=== PATIENT | male | born 1960 | race Caucasian/White ===

== ENCOUNTER 2024-01-21 05:42 | Day surgery (SDC) | payer BC, OTHER, SELFPAY ==
--- NOTE | 2023-12-25 13:25 | EKG12_ITS ---
Test Reason : PRE-OP Blood Pressure : / mmHG Vent. Rate : 086 BPM Atrial Rate : 086 BPM P-R Int : 152 ms QRS Dur : 088 ms QT Int : 364 ms P-R-T Axes : 087 079 072 degrees QTc Int : 435 ms Normal sinus rhythm Normal ECG Confirmed by MINI SEE, JOE ([id number]), metropolitan editor NORMA LEWIS ([id number]) on 12/26/2023 10:40:08 AM Referred By: Inocente Sullivan Confirmed By:JOE MORSE MD
[2023-12-25 15:00] LABS: Absolute Neutrophil Count 4.4 X10^3/uL (2.0-7.7); Basophil# 0.09 X10^3/uL; Basophil% 1.4 % (0-1); Eosinophil# 0.15 X10^3/uL; Eosinophils% 2.3 % (0-5); Hematocrit 45.6 % (40-54); Hemoglobin 15.8 g/dL (13.0-16.5); Lymphocyte % 19.9 % (19-41); Mean Corp Hgb Conc 34.6 g/dL (32-36); Mean Corpuscular Hgb 31.7 pg (27.0-32.0); Mean Corpuscular Volume 91.4 fL (80-94); Mean Platelet Vol. 9.7 fl (6.2-12.0); Monocyte# 0.57 X10^3/uL; Monocyte% 8.7 % (0-10); NRBC Flagged by Analyzer 0 % (0-5); Neutrophil % 67.4 % (47-70); Platelet Count 242 K/mm3 (150-450); RBC Distribution Width CV 13.2 % (11.6-14.6); RBC Distribution Width SD 44.4 fl (35.1-43.9); Red Blood Count 4.99 M/mm3 (4.6-6.2); White Blood Count 6.5 K/mm3 (4.4-11.0)
[2023-12-25 15:47] LABS: Anion Gap 4 (5-15); BUN 10 mg/dL (7-18); BUN/Creat Ratio 11.9 RATIO (10-20); Calcium,Total 9.6 mg/dL (8.5-10.1); Chloride 105 mmol/L (98-107); Creatinine, Serum 0.84 mg/dL (0.70-1.30); EST Glomerular Filtration Rate 98 mL/min (>60); Est Glom Filt Rate - Afr Amer 119 mL/min (>60); Glucose 94 mg/dL (74-106); Potassium 3.5 mmol/L (3.5-5.1); Sodium Level 139 mmol/L (136-145)
[2023-12-25 16:37] LABS: HIV - WCH Non-Reactive (Nonreactive); Hepatitis B Surface Antibody Non-Reactive; Hepatitis C Antibody Non-Reactive (Nonreactive)
[2023-12-27 06:08] LABS: Hepatitis A AB, Total Negative (Negative)
[2024-01-21] VITALS (9 sets, daily range): BP systolic 99–118; BP diastolic 68–85; PULSE 73–117; RESP 11–21; TEMP 36.2–36.7; O2SAT 91–100; BMI 22.8
--- NOTE | 2024-01-21 06:30 | RAD_ITS ---
PROCEDURE: Intraoperative fluoroscopic services for C5-C6 and C6-C7 prosthetic disc placement. DATE OF EXAMINATION: January 21, 2024. INDICATION: Male, 63 years old. Chronic neck pain. FLUOROSCOPY TIME (if supplied): (32.6 seconds) minutes/seconds. 4.64 mGy. 9 images were submitted. RAD/Cerv Spine 2 or 3 Views IMPRESSION: Intraoperative imaging provided for disc placement at the C5-C6 and C6-C7 levels. Electronically Signed: Moisés Newman MD at 13:54 EDT ,
[2024-01-21] MEDS: Lactated Ringers 1,000 ML 15 ML IV (06:41)
[2024-01-21] MEDS: Acetaminophen 500 MG Tablet 1000 MG PO ×2 (06:42→13:12)
[2024-01-21] MEDS: dexAMETHasone 10 MG/ML Vial 8 MG IV (06:52)
[2024-01-21] MEDS: Magnesium 1 GM over 15 mins IV (06:53)
[2024-01-21 07:05] LABS: Bedside Glucose 102 mg/dL (74-106)
--- NOTE | 2024-01-21 07:26 | PCM.HP.BLA ---
History and Physical MR#: [id number] Acct: [id number] Name: RAHAT AMOS Jr. Rep #: [id number] : 1960 Provider: Dr. Inocente Sullivan MD Age/Sex: 63/M Location: [facility] [place] Status: Signed Intake Vital Signs 11/12/2413:54 Height 5 ft 9 in Weight: 164 lb BMI 24.2 Intake Visit Reasons: cervical spine Accompanied by: Allergies codeine Adverse Reaction (Verified 01/14/24 15:08) Otherprocaine [From Novocain] Adverse Reaction (Verified 01/14/24 15:08) Other Medications albuterol sulfate 90 mcg/actuation aerosol inhaler 2 puff inhalation Q6H PRN shortness of breath or wheezing 11/13/23 [History Confirmed 01/14/24] aspirin 81 mg tablet,delayed release 81 mg PO DAILY 11/13/23 [History Confirmed 01/14/24] lisinopril 10 mg tablet 10 mg PO DAILY 11/13/23 [History Confirmed 01/14/24] sildenafil 50 mg tablet 50 mg PO Q24H PRN sexual activity 11/13/23 [History Confirmed 01/14/24] PFSH Medical History Alcohol use Arthritis Chronic cough COPD (chronic obstructive pulmonary disease) Edentulous History of edema History of hiatal hernia History of irregular heartbeat History of stress test Hypertension Leg cramps Shortness of breath on exertion Smoker Wears glasses Surgical History H/O knee surgery History of colonoscopy History of tooth extraction History of umbilical hernia repair Family History Father Heart disease HypertensionMother Asthma Social History Smoking Status: Current every day smoker tobacco type: cigarettes alcohol intake: current alcohol intake frequency: holidays/special occasions only what type of physical activity do you participate in: walking HPI cervical spine Details: This documentation accurately reflects the service provided and the decisions made by me, Dr. Inocente Sullivan MD 01/14/24 1504. Part of today?s visit was documented by Joyce DOZIER, acting as scribe. RAHAT AMOS is a 63 year old M here today for preop, cervical spine, dos 01/21/24. Rahat continues to have neck and low back pain. His neck pain associated with left worse than right upper extremity numbness. He also has low back pain that radiates down to the lower extremities causing numbness and claudication. He has had trouble with balance which is worsening with time. The last 2 months he did go to vacation and although he had some balance issues, he did not report any new falls or injuries. Following his his previous history: 11/13/23: RAHAT AMOS is a 62 year old M here today for lumbar and cervical spine pain. Patient states this pain has bothered him for a while but has gotten worse over the last couple of weeks. Patient denies any specific injury that caused the pain. He states that if he is walking or on his feet too long he notices numbness into the right leg. He states he will get numbness and tingling into both legs but the right one is worse. Patient states he will get numbness and tingling down into his left arm. Patient has done patient care coordinator in which who referred him here. He denies any physical therapy or injections to the back. Patient states if he sits down or leans up against something he can relieve his pain. 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 He states he does a lot of walking at work. Patient takes Aleve for the pain in which he states does relieve the pain some. Rahat has had both neck and lower back pain for many years. The lower back pain radiates towards bilateral posterior hip. He has burning numbness over the anterior thigh and sometimes goes down to the toes worse on the right than the left. He has difficulty walking distances and finds himself leaning onto a shopping cart or sitting down after a while. He is able to walk about a block or 2 after which she has to find a place to sit down. He has had chiropractic treatment but no injections in the lower back. His neck pain has had episodic radiating numbness into the left worse than right upper extremity. He is right-hand dominant. He feels stumbling and early balance difficulties but denies any falls. He denies any dexterity issues but has numbness in the left worse than right hand occasionally. Ortho Exam General General: Yes no acute distress Neurologic: Yes alert and Yes oriented x3 Spine SPINE TESTING CERVICAL THORACIC LUMBAR Musculoskeletal Strength 0=absent - 5=normal Details: Examination of the neck and upper back showed no spinous process or paraspinal tenderness in the neck, mild right paraspinal tenderness in the lower lumbar region. Neurologic evaluation of upper and lower extremity shows 5 x 5 power in all muscle groups normal sensations in all dermatomes. Jaja's is negative. Romberg's is positive. Tandem gait shows mild imbalance. Bilateral knee reflexes are brisk. There is no clonus. Coding Level of Care Code Off vis,est,level 4 Diagnoses Spinal stenosis of lumbar region with neurogenic claudication M48.062 Cervical myelopathy G95.9 Time Spent (min) 35 Assessment and Plan Assessment and Plan (1) Spinal stenosis of lumbar region with neurogenic claudication: Status: Acute (2) Cervical myelopathy: Status: Acute Plan I again reviewed his x-rays and MRI of the cervical and lumbar spine done recently. These show C5-6 disc height loss, C5-6 moderate stenosis, C6-7 mild stenosis with cord indentation without any cord signal changes. No obvious instability on dynamic flexion-extension views. Lumbar spine shows transitional anatomy with possibly sacralized L5. Counting from the lowermost mobile segment is L5-S1, patient has L3-S1 disc degeneration disc height loss with severe central and foraminal stenosis along with congenital bony canal narrowing. No obvious instability on dynamic flexion-extension views in the lumbar spine as well. I again explained to him his imaging findings in detail. I went over both cervical and lumbar stenosis and the natural history. Cervical myelopathy arising from cord dysfunction from compressive lesions would affect his hand dexterity and numbness and also cause balance difficulties which may be progressive. Natural history of cervical myelopathy tends to have a stepladder pattern of progression with possibility of irreversible injury. Patient is already started to develop significant balance issues and stumbling. He denies use of any ambulatory aid. I recommend surgery in the form of anterior cervical decompression with possible disc replacement from C5-7. For his lumbar spine, I explained to him options of treatment which include continued nonoperative treat measures versus surgery. While patient does have significant neurogenic claudication, he may be able to explore further nonsurgical treatment while he recovers from the cervical spine surgery. With the severity of stenosis, possibility of progression and worsening claudication is likely. I explained to the patient that this may also need surgery at a future date. I explained to him that the extent of surgery would be best if the 2 surgeries are at least 3 months apart to allow for adequate healing. Due to cord function at stake, cervical surgeries are given prior to lower lumbar. Patient will undergo C5-7 disc replacement. All risk benefits and alternatives were discussed in detail. The risks include but are not limited to infection, bleeding, injury to nerves and vessels, dysphagia, dysphonia, hematoma, need for further surgery, need for fusion, hardware failure, persistent pain, nerve root injury, spinal cord injury, pneumonia, atelectasis, cardiopulmonary event, DVT, pulm embolism, stroke. Patient understands and agrees to proceed with surgery. Consent was signed. All restrictions after surgery were discussed in detail. All questions were answered.
[2024-01-21] MEDS: Cefazolin 2 GM in 0.9% Normal Saline (100mL Bag) 100 ML IV (07:45)
--- NOTE | 2024-01-21 09:46 | PCM.OPRPT ---
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 Anesthesia: Gen. endotracheal Estimated blood loss: 20 mL Complications: None Instrumentation used: [employer] Mobi-C cervical disc replacement implants Indications: The patient is a pleasant 63-year-old gentleman who presented with symptoms of neck pain, left worse than right upper extremity numbness, progressive dexterity and balance issues. MRI revealed C5-7 disc degeneration with central and left worse than right foraminal stenosis. In order to halt the progression of myelopathy, patient requested surgical intervention. All risks and benefits of the procedure were explained to the patient. The risks include but are not limited to infection, bleeding, injury to nerves and vessels, vertebral artery injury, spinal cord injury, paralysis, vocal cord paralysis, injury to esophagus, need for further procedures, adjacent segment degeneration, heterotopic ossification, implant loosening, implant failure, DVT, pulmonary embolism, cardiopulmonary event, etc. Procedure: The patient was identified in the preoperative suite using unique patient identifiers. Skin was marked consent was taken and all questions were answered. The patient was then brought back to the operative room and a timeout was performed. General endotracheal anesthesia was given. Intraoperative neuro monitoring leads were applied. The patient was carefully positioned supine on a regular OR table. A lateral x-ray with a C-arm was done to identify the level and to define the incision. The anterior neck was then prepped and draped in the usual fashion. A final timeout was then performed. A transverse skin incision was then taken to the left of midline 2 fingerbreadths above the clavicle. Subcutaneous tissue was then divided with Bovie. Platysma was identified and cut transversely with scissors. The fascial interval between the sternocleidomastoid and the larynx was developed. Omohyoid was identified and mobilized medially and inferiorly. Carotid sheath was laterally while the esophagus with the larynx was retracted medially to reach the prevertebral fascia. All prevertebral layers of fascia were bluntly dissected and a [place] pin was placed into one of the bodies. A lateral C-arm image was used to confirm the correct level. Once this was done longus coli muscle was elevated on both sides at and above and below C5-7 discs. Shadow line retractors were then placed with great care to protect the esophagus. A long handle knife was then used to perform annulotomy at C5-6. Disc fragments were removed with the pituitary. [place] pins were placed in C5 and C6 for disc distraction. AP view confirmed midline placement of [place] pins. Curettes were utilized to remove cartilage from the endplates. Discectomy was performed laterally up to the uncovertebral joints. Adequate decompression was performed, PLL was thinned out and partially resected. Foramina were decompressed without taking down the uncovertebral processes. Once the disc space was prepared, trials of various sizes were utilized. Thorough irrigation was given. Mobi-C anterior cervical disc replacement implant of size 15 x 15 mm with 5 mm height was then placed under fluoroscopic guidance. Adequate positioning was noticed on AP and lateral views. The retractors were then moved to the C6-7 disc space and the procedure of complete discectomy and decompression was repeated. Mobi-C implant of 15 x 17 mm with 6 mm height was placed at this level. AP and lateral fluoroscopy confirmed good position. Thorough irrigation was again given. Hemostasis was achieved with FloSeal and cautery. Closure was done with 3-0 Vicryl for the platysma and subcutaneous tissue layers and 4-0 Monocryl for the skin. Steri-Strips were applied and dressing was done with 4 x 4 gauze and Tegaderm. A cervical collar was then applied. The patient was then woken up from anesthesia extubated and taken to PACU in stable condition. Intraoperative neuro monitoring was performed throughout this procedure. Motor evoked potentials were run periodically. All potentials remained at baseline throughout the procedure. I was present for the entire surgery and performed the surgery myself. Surgeon: Inocente Sullivan Admit VTE Documentation VTE Mechan Device Prophylaxis: SCD's Procedures Musculoskeletal [id number]: Other Procedure See Report
--- NOTE | 2024-01-21 13:38 | SUR.PHASEII ---
pt denied need for narcotic pain med. family at bedside. dressing dry and intact to ant neck.
== END 2024-01-21 14:19 | disposition home or self-care (01) ==
LOC: SDC 05:42 → AC 05:43
PROVIDERS: Anesthesiology; PCP Internal Medicine; Referring Provider Orthopaedic Surgery Orthopaedic Surgery of the Spine; Visit Provider Orthopaedic Surgery Orthopaedic Surgery of the Spine
PROC: (CPT 22856; principal; 2024-01-21 07:00)
DX: M48.062 Spinal stenosis, lumbar region with neurogenic claudication (principal); J44.9 Chronic obstructive pulmonary disease, unspecified; M50.020 Cervical disc disorder with myelopathy, mid-cervical region, unspecified level; F17.210 Nicotine dependence, cigarettes, uncomplicated; I10 Essential (primary) hypertension; Z79.899 Other long term (current) drug therapy; Z79.82 Long term (current) use of aspirin; R06.02 Shortness of breath
CPT/HCPCS: 22856; 22858; 00600; 36415; 72040; 76000; 80048; 82962; 83735; 85025; 86703; 86706; 86708; 86803; 86850; 86900; 86901; 87077; 87081; 93005; C1713; J7120; J2405; J3475

== ENCOUNTER 2024-05-20 11:30 | Outpatient (RCR) | payer BC, OTHER, SELFPAY ==
--- NOTE | 2024-02-16 14:27 | HP.PTEVAL_ITS ---
Patient's Visit Information Visit Information Visit Information: RAHAT AMOS Jr. is a 63 year old M referred to Physical Therapy by Dr. Inocente Sullivan MD with a diagnosis of PAIN IN RIGHT SHOULDER. Date of Evaluation: 02/16/24 Physical Therapist: Kun Sena, PT, Cert MDT, OCS Visit Plan Frequency: 2x /Week Duration: 4 Weeks Plan: S/P DISC REPLACEMENT C5-6,C6-7 JANUARY 20 10# LIFTING RESTRICTION PT INTERVENTIONS CERVICAL ROM ,POSTURAL EX'S ,STRENGTHENING RIGHT SHOULDER /RTC ,ACTIVITY MODIFICATION AND MODALITIES PRN Subjective Subjective: This 63 y/o male presents to physical therapy with s/p cervical disc replacement C5-6 ,C6-7 January 20 at [facility] by DR Sullivan. Patient has had cervical pain 2 years. Patient had MRI showed D[facility] at [facility]. Prior to surgery seen chiropractor. No pior injections. Patient d/c next day with cervical collar ~ [address] x-rays looked good post surgery ~ February 02 . Patient is on 10# restriction. Also recommended PT. Patient has some neck pain sore and shoulder pain with some soreness and clicks. Patient denies nausea/dizziness/tinnitus. Patient has some paresthesia in fingers. Patient sleeping good. PRN medication for pain and meloxicam. Patient has min weakness in arms . Patient condition affects QOL and function and RTW. Renative RTW 12 weeks from surgery . Patient goals to return work and daily function. 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: Pain Intensity (Out of 10): 3 Pain Intensity Range: 10 Objective Objective: POSTURE: mild forward posture INCISION: anterior well approximate NEURO: denies paresthesia/tingling ,reflexes C5-3-7 :2/3 AROM: BUE WFL CERVICAL ROM: flexion min loss ,rotation min/mod loss ,extension mod loss ,lateral flexion mod/severe MMT: biceps/triceps /wrist 4/5 ( peak force ) infraspinatus 16.8 ,supraspinatus 13.4 ,deltoid 10.2 ,lateral 8.6 Special Tests C/S Radiculapathy - Left Upper limb tension test: Negative C/S Radiculapathy - Right Upper limb tension test: Negative Balance/Special Test Scores Oswestry Neck Score: 21 Goals Goal 1:: Patient to be I with [facility] for cervical spine Goal Time Frame: 4-6 Weeks Goal 2:: Patient to demonstrate 70% improvement with less pain and improved function. Goal Time Frame: 4-6 Weeks Goal 3:: Patient to improve cervical ROM for function of recovery to drive to turn neck Goal Time Frame: 4-6 Weeks Goal 4:: Patient to improve peak force RTC and deltoid by 5-10# to improve function Goal Time Frame: 4-6 Weeks Goal 5:: Patient to improve back oswestry score by 5 points to improve QOL and RTW Goal Time Frame: 4-6 Weeks Rehabilitation Potential Physical Therapy Diagnosis: This patient underwent s/p cervical disc replacement C5-6 ,C6-7 January 20 with weakness shoulder ,decrease ROM and RTW thus benefit from skilled PT Rehabilitation Potential: Good Anticipated Interventions Patient/Client Instruction: Educate patient on: Condition and Plan of Care For the Purpose of:: To decrease pain, To increase ROM, To improve muscle performance and motor function, To improve ability to perform ADL's, To increase tolerance to activity/condition/position, To improve ability of physical actions for home/community/work/leisure, To improve health of tissue, To decrease soft tissue restriction, To increase flexibility/ROM, To improve endurance, To improve balance and To improve tolerance to ADL's Therapeutic Exercise to Include: Strength training, Endurance training, Postural training, Flexibilty training and Dynamic Lumbar Stabilization Comment: RIGHT SHOULDER For the Purpose of:: To decrease pain, To increase ROM, To improve muscle performance and motor function, To increase tolerance to activity/condition/position, To improve ability of physical actions for home/community/work/leisure, To improve health of tissue, To decrease soft tissue restriction, To increase flexibility/ROM, To prevent re-injury and To improve tolerance to ADL's TENS: Yes IF ES: Yes Thermo therapy (hot pack): Yes Ultrasound (thermal/non thermal): Yes For the Purpose of:: To decrease pain, To increase ROM, To improve nutrient delivery to tissue, To increase oxygenation perfusion, To improve health of tissue, To decrease soft tissue restriction and To increase flexibility/ROM Text: Thank you for the opportunity to evaluate your patient. For Medicare and Medicare HMO plans, please review the plan of care and approve it. It will need to be FAXED BACK to us at [phone] for Medicare purposes. For Medicare only, by signing this I certify the plan of care. Please let me know if there are questions or concerns regarding this plan of care. Physician Signature: Date:
--- NOTE | 2024-05-20 12:13 | HP.PTDCSUM ---
Discharge Summary D/C summary: It has been my pleasure to treat RAHAT AMOS Jr. referred by Dr. Inocente Sullivan MD, with the diagnosis of PAIN IN RIGHT SHOULDER for a total of 25 visit(s). Discharge Date: Please see the following information for a summary of their discharge status. Subjective Subjective: Doing well Pain Bilateral Neck: Pain Intensity (Out of 10): 0 Right Shoulder: Pain Intensity (Out of 10): 0 Overall Improvement % Improvement: 80 Objective Objective/Function: AROM: BUE WFL CERVICAL ROM: flexion min loss ,rotation min/mod loss ,extension mod loss ,lateral flexion mod MMT: biceps/triceps /wrist 4/5 ( peak force ) infraspinatus 18.3 ,[id number] ,deltoid 24.1 ,lateral 16.5 Goals Goal 1:: Patient to be I with [facility] for cervical spine Goal Progress: Goal Met Goal 2:: Patient to demonstrate 70% improvement with less pain and improved function. Goal Progress: Goal Met Goal 3:: Patient to improve cervical ROM for function of recovery to drive to turn neck Goal Progress: Goal Met Goal 4:: Patient to improve peak force RTC and deltoid by 5-10# to improve function( NEW GOAL) Goal Progress: Goal Met Goal 5:: Patient to improve back oswestry score by 5 points to improve QOL and RTW( NEW GOAL) Goal Progress: Goal Met Plan Plan: D/C D/C Information d/c sentence: If there are questions or concerns regarding this patient's physical therapy, please feel free to call me at [phone]. Thank you for the referral of this patient. Sincerely, Kun Sena, PT, Cert MDT, OCS Balance/Gait/Functional tests Balance/Special Test Scores Oswestry Neck Score: 15 Improvement % Improvement: 80
== END 2024-05-20 19:00 | disposition home or self-care (01) ==
LOC: PT 11:30
PROVIDERS: PCP Internal Medicine; Referring Provider Orthopaedic Surgery Orthopaedic Surgery of the Spine; Visit Provider Orthopaedic Surgery Orthopaedic Surgery of the Spine
DX: Z98.890 Other specified postprocedural states (principal); M25.511 Pain in right shoulder
CPT/HCPCS: 97110; 97162; 97530

== ENCOUNTER 2024-12-15 10:42 | Observation (INO) | payer BC, OTHER, SELFPAY ==
--- NOTE | 2024-11-29 15:03 | PAT.ANESEVAL ---
Pre-Assessment Diagnosis/Proposed Procedure Planned Operative Procedure(s): Lumbar Laminectomy L2-3, L3-4 and L4-5 Anesthesia History Anesthesia History - supervisor costuming: Anesthesia History - supervisor costuming Hx Hospitalization Yes: 10/2023 R/O'd CVA; BACK 11/29/24 10:14 ISSUES DISCOVERED Any Problems With Anesthesia No 11/29/24 10:14 Cholinesterase deficiency No 11/29/24 10:14 You/Your Family Experience No 11/29/24 10:14 fever (hyperthermia) with Relationship Recent Exposure to Contagious No 02/03/24 15:15 Disease Does patient have nerve No 11/29/24 10:14 stimulator Patient instructed to have device shut off --Does patient have Pacemaker or ICD? When Was Last Pacemaker Check QUESTION #4 FULL TEXT: You/Your Family Experience fever (hyperthermia) with Anesthesia Last Oral Intake Last Oral intake: Last Oral Intake NPO since Meds taken in AM with sips of water? Meds patient instructed to take am of surgery PONV PONV - supervisor costuming: PONV - supervisor costuming Female No 11/29/24 10:14 HX of Motion Sickness No 11/29/24 10:14 HX of N/V After Surgery No 11/29/24 10:14 Non-Smoker No 11/29/24 10:14 Duration of Surgery greater Yes 11/29/24 10:14 than 60 minutes Number of Risk Factors 1 11/29/24 10:14 PONV Score Low Risk 11/29/24 10:14 Height & Weight Height & Weight: Anesthesia: Height & Weight Height 5 ft 9 in 02/03/24 15:15 Respiratory Assessment Respiratory Assessment - supervisor costuming: Respiratory Tract Infection Hx - supervisor costuming Hx Respiratory Tract Infection No 11/29/24 10:14 STOP Sleep Apnea STOP Sleep Apnea - supervisor costuming: STOP Sleep Apnea - supervisor costuming Hx Hypertension Yes: PER PT, CONTROLLED ON 11/29/24 10:14 MEDS Hx Sleep Apnea No 11/29/24 10:14 CPAP BIPAP Do you snore loudly (louder No 11/29/24 10:14 than talking or can be heard Do you often feel tired/ No 11/29/24 10:14 fatigued/ sleepy during daytime? Has anyone observed you stop No 11/29/24 10:14 breathing during sleep? STOP Results Negative 11/29/24 10:14 QUESTION #5 FULL TEXT : Do you snore loudly (louder than talking or can be heard through closed doors)? 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 Specify any problems Hx of Preganancy in last 3 N/A 11/29/24 10:14 Months Nurse Filling Out Transfusion VCHRISTIN 11/29/24 10:14 & Questions: Date: 11/29/24 11/29/24 10:14 Time: 10:17 11/29/24 10:14 Patient unable to answer at this time (ie. confused, unrespo /Reproduction History /Reproductive History - supervisor costuming: /Reproductive Hx- supervisor costuming Hx Now No 11/29/24 10:14 Gestational Age (in weeks): EDC: Hx Hx Para Hx Section SAB No 11/29/24 10:14 PFSH Medical History (Updated 11/29/24 @ 10:14 by Nupur Alanis) Wears glasses Edentulous Alcohol use Arthritis History of hiatal hernia COPD (chronic obstructive pulmonary disease) Shortness of breath on exertion Chronic cough Smoker Leg cramps History of edema History of stress test Hypertension History of irregular heartbeat Home Medications ?Medication ?Instructions ?Recorded ?Last Taken ?Type albuterol sulfate 90 mcg/actuation 2 puff inhalation Q6H PRN 11/13/23 Unknown History aerosol inhaler shortness of breath or wheezing aspirin 81 mg tablet,delayed 81 mg PO DAILY 11/13/23 Unknown History release lisinopril 10 mg tablet 10 mg PO DAILY 11/13/23 01/20/24 18:00 History sildenafil 50 mg tablet 50 mg PO Q24H PRN sexual activity 03/07/24 Unknown History acetaminophen 500 mg capsule 500 mg PO Q6H PRN pain 11/29/24 Unknown History ibuprofen 600 mg tablet 600 mg PO Q6H PRN PRN pain 11/29/24 Unknown History Allergy/AdvReac Type Severity Reaction Status Date / Time codeine AdvReac Other Verified 11/29/24 10:06 procaine (From Novocain) AdvReac Other Verified 11/29/24 10:06 Family History Father Heart disease Hypertension Mother Asthma Surgical History (Updated 11/29/24 @ 10:14 by Nupur Alanis) Hx of surgical procedure History of umbilical hernia repair History of colonoscopy History of tooth extraction H/O knee surgery Social History Smoking Status: Current every day smoker tobacco type: cigarettes alcohol intake: current alcohol intake frequency: holidays/special occasions only what type of physical activity do you participate in: walking Audit: Pertinent Findings Pertinent Findings EKG Perinent findings: December 25, 2023. Normal sinus rhythm. Recommendation Anesthesia Recommendation Anesthesia recommendation: OPTIMIZED for anesthesia
[2024-12-02 16:14] LABS: Absolute Lymphocyte Count 1.14 X10^3/uL (0.83-4.51); Absolute Neutrophil Count 4.6 X10^3/uL (2.0-7.7); Basophil# 0.08 X10^3/uL; Basophil% 1.2 % (0-1); Eosinophil# 0.11 X10^3/uL; Eosinophils% 1.7 % (0-5); Hematocrit 43.2 % (40-54); Hemoglobin 15.3 g/dL (13.0-16.5); Lymphocyte # 1.14 X10^3/ul (0.83-4.51); Lymphocyte % 17.3 % (19-41); Mean Corp Hgb Conc 35.4 g/dL (32-36); Mean Corpuscular Hgb 31.7 pg (27.0-32.0); Mean Corpuscular Volume 89.4 fL (80-94); Mean Platelet Vol. 9.4 fl (6.2-12.0); Monocyte# 0.66 X10^3/uL; NRBC Flagged by Analyzer 0 % (0-5); Neutrophil # 4.58 X10^3/uL (2.7-7.7); Neutrophil % 69.3 % (47-70); Platelet Count 257 K/mm3 (150-450); RBC Distribution Width CV 12.9 % (11.6-14.6); RBC Distribution Width SD 42.5 fl (35.1-43.9); Red Blood Count 4.83 M/mm3 (4.6-6.2); White Blood Count 6.6 K/mm3 (4.4-11.0)
[2024-12-02 19:29] LABS: Hepatitis B Surface Antibody Nonreactive; Hepatitis C Antibody Nonreactive (Nonreactive)
[2024-12-02 20:23] LABS: Anion Gap 16 (5-15); BUN 9 mg/dL (4-19); BUN/Creat Ratio 11.8 RATIO (10-20); Calcium,Total 8.8 mg/dL (7.6-11.0); Carbon Dioxide 19.8 mmol/L (21.0-32.0); Chloride 104 mmol/L (98-108); Creatinine, Serum 0.78 mg/dL (0.70-1.20); EST Glomerular Filtration Rate 100 (>60); Glucose 95 mg/dL (70-99); HIV Nonreactive (Nonreactive); Potassium 3.4 mmol/L (3.3-5.1); Sodium Level 140 mmol/L (133-145)
[2024-12-04 05:07] LABS: Hepatitis A AB, Total Negative (Negative)
[2024-12-15] VITALS (13 sets, daily range): BP systolic 99–130; BP diastolic 62–85; PULSE 66–99; RESP 14–20; TEMP 36.1–36.8; O2SAT 93–100; BMI 24.4
[2024-12-15] MEDS: Magnesium 1 GM over 15 mins IV (06:24)
[2024-12-15] MEDS: 0.9% Normal Saline (1000mL) 1,000 ML 15 ML IV (06:25)
[2024-12-15] MEDS: Acetaminophen 500 MG Tablet 1000 MG PO (06:43)
--- NOTE | 2024-12-15 07:00 | RAD_ITS ---
PROCEDURE: MOBILE C-ARM SPINE 1 VIEW ANY LEVEL 12/15/2024 REASON FOR EXAM: LAMINECTOMY L2-3,L3-4, AND L4-5 TECHNIQUE: Cross fire lateral view. Fluoroscopy: 3.1 sec Dose: 0.70 mGy COMPARISON: No relevant prior. FINDINGS: A surgical probe is noted dorsally at L4-L5. Artifact from surgical gauze. RAD/Spine 1 View Any Level IMPRESSION: Intraoperative findings as noted above. Reading Location: [place] [id number]
--- NOTE | 2024-12-15 07:24 | PRE.ANES_ITS ---
ASA Classification* ASA Classification ASA Classification: 2 Assessment & Plan Anesthesia* Anesthesia Assessment Anesthesia Assessment: Discussed sedation and/or anesthesia options, risks, benefits, and alternatives with patient/parents/legal guardian/POA. Questions invited. The patient/parents/legal guardian/POA seems to understand and agrees to proceed with anesthesia plan. Reviewed the physical assessment, medical history, allergy history and patient home medications list prior to surgery/procedure/anesthetic and documented any changes. Performed airway and anesthesia risk assessments. Anesthesia Type Anesthesia Type: General Anesthesia Focused Assessment* Temperature: 98.0 F Pulse Rate: 88 Blood Pressure: 117/74 Respiratory Rate: 18 Pulse Ox: 99 Airway Assessment Mouth opens: >3 cm Mallampati Score: II Focused Labs Anesthesia Preop lab: CBC WBC 6.6 K/mm3 (4.4-11.0) 12/02/24 15:34 12/02/24 RBC 4.83 M/mm3 (4.6-6.2) 12/02/24 15:34 12/02/24 Hgb 15.3 g/dL (13.0-16.5) 12/02/24 15:34 12/02/24 Hct 43.2 % (40-54) 12/02/24 15:34 12/02/24 Plt Count 257 K/mm3 (150-450) 12/02/24 15:34 12/02/24 CHEMISTRY Potassium 3.4 mmol/L (3.3-5.1) 12/02/24 15:34 12/02/24 Sodium 140 mmol/L (133-145) 12/02/24 15:34 12/02/24 Magnesium 2.0 mg/dL (1.5-2.2) 12/02/24 15:34 12/02/24 BUN 9 mg/dL (4-19) 12/02/24 15:34 12/02/24 Creatinine 0.78 mg/dL (0.70-1.20) 12/02/24 15:34 12/02/24 Glucose 95 mg/dL (70-99) 12/02/24 15:34 12/02/24 POC Glucose 102 mg/dL (74-106) 01/21/24 06:17 01/21/24 COAG Pre-Assessment Diagnosis/Proposed Procedure Planned Operative Procedure(s): Lumbar Laminectomy L2-3, L3-4 and L4-5 Anesthesia History 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 When Was Last Pacemaker Check QUESTION #4 FULL TEXT: You/Your Family Experience fever (hyperthermia) with Anesthesia Last Oral Intake Last Oral intake: Last Oral Intake NPO since 04:15 12/15/24 06:33 Meds taken in AM with sips of No 12/15/24 06:33 water? Meds patient instructed to take am of surgery PONV PONV - liquified natural gas specialist: PONV - liquified natural gas specialist Female No 11/29/24 10:14 HX of Motion Sickness No 11/29/24 10:14 HX of N/V After Surgery No 11/29/24 10:14 Non-Smoker No 11/29/24 10:14 Duration of Surgery greater Yes 11/29/24 10:14 than 60 minutes Number of Risk Factors 1 11/29/24 10:14 PONV Score Low Risk 11/29/24 10:14 Height & Weight Height & Weight: Anesthesia: Height & Weight Height 5 ft 9 in 12/15/24 06:33 Weight: 75 kg 12/15/24 06:33 Body Mass Index (BMI) 24.4 12/15/24 06:33 Respiratory Assessment Respiratory Assessment - liquified natural gas specialist: Respiratory Tract Infection Hx - liquified natural gas specialist Hx Respiratory Tract Infection No 11/29/24 10:14 STOP Sleep Apnea STOP Sleep Apnea - liquified natural gas specialist: STOP Sleep Apnea - liquified natural gas specialist Hx Hypertension Yes: PER PT, CONTROLLED ON 11/29/24 10:14 MEDS Hx Sleep Apnea No 11/29/24 10:14 CPAP BIPAP Do you snore loudly (louder No 11/29/24 10:14 than talking or can be heard Do you often feel tired/ No 11/29/24 10:14 fatigued/ sleepy during daytime? Has anyone observed you stop No 11/29/24 10:14 breathing during sleep? STOP Results Negative 11/29/24 10:14 QUESTION #5 FULL TEXT : Do you snore loudly (louder than talking or can be heard through closed doors)? 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 Specify any problems Hx of Preganancy in last 3 N/A 11/29/24 10:14 Months Nurse Filling Out Transfusion VCHRISTIN 11/29/24 10:14 & Questions: Date: 11/29/24 11/29/24 10:14 Time: 10:17 11/29/24 10:14 Patient unable to answer at this time (ie. confused, unrespo /Reproduction History /Reproductive History - liquified natural gas specialist: /Reproductive Hx- liquified natural gas specialist Hx Now No 11/29/24 10:14 Gestational Age (in weeks): EDC: Hx Hx Para Hx Section SAB No 11/29/24 10:14 Active Medications Active Medications: Current Medications Generic Name Dose Route Start Last Admin Trade Name Freq PRN Reason Stop Dose Admin Acetaminophen 1,000 mg 12/15/24 08:00 12/15/24 06:43 Acetaminophen 500 Mg Tablet PO 12/15/24 08:01 1,000 mg X1 ONE Administration Cefazolin Sodium 2 gm/ N/A 20 mls @ 400 mls/hr 12/15/24 08:00 IV 12/15/24 08:02 PREOP ONE Tranexamic Acid 1,000 mg/ 110 mls @ 440 mls/hr 12/15/24 08:00 Sodium Chloride IV 12/15/24 08:14 X1 ONE Tranexamic Acid 1,000 mg/ 110 mls @ 440 mls/hr 12/15/24 08:00 Sodium Chloride IV 12/15/24 08:14 X1 ONE Magnesium Sulfate 1 gm/ 102 mls @ 408 mls/hr 12/15/24 08:00 12/15/24 06:24 Dextrose IV 12/15/24 08:14 408 mls/hr X1 ONE Administration Sodium Chloride 1,000 mls @ 15 mls/hr 12/15/24 06:05 12/15/24 06:25 IV 15 mls/hr .Q48H LESLIE Administration Insulin Human Lispro 1 - 6 unit 12/15/24 08:00 Insulin Lispro 100 Unit/Ml Insuln.Pen SC 12/15/24 18:00 Q4H PRN PRN BG>/= 180, SEE PROTOCOL Protocol PFSH Medical History Wears glasses Edentulous Alcohol use Arthritis History of hiatal hernia COPD (chronic obstructive pulmonary disease) Shortness of breath on exertion Chronic cough Smoker Leg cramps History of edema History of stress test Hypertension History of irregular heartbeat Home Medications ?Medication ?Instructions ?Recorded ?Last Taken ?Type albuterol sulfate 90 mcg/actuation 2 puff inhalation Q 6H PRN 11/13/23 12/15/24 History aerosol inhaler shortness of breath or wheez ing aspirin 81 mg tablet,delayed 81 mg PO DAILY 11/13/23 0 12/10/24 History release lisinopril 10 mg tablet 10 mg PO DAILY 11/13/2304/01 History sildenafil 50 mg tablet 50 mg PO Q24H PRN sexual act ivity 11/13/23 12/14/24 History acetaminophen 500 mg capsule 500 mg PO Q6H PRN pain 12/13/24 History ibuprofen 600 mg tablet 600 mg PO Q6H PRN PRN pain 0 11/29/24 12/10/24 History Allergy/AdvReac Type Severity Reaction Status Date / Time codeine AdvReac Other Verified 12/15/24 06:23 procaine (From Novocain) AdvReac Other Verified 12/15/24 06:23 Family History Father Heart disease Hypertension Mother Asthma Surgical History Hx of surgical procedure History of umbilical hernia repair History of colonoscopy History of tooth extraction H/O knee surgery Social History Smoking Status: Current every day smoker tobacco type: cigarettes alcohol intake: current alcohol intake frequency: holidays/special occasions only what type of physical activity do you participate in: walking Review of Systems (Anesthesia) ROS Narrative System reviewed and no additional complaints, except as documented.
--- NOTE | 2024-12-15 07:49 | PCM.HP.BLA ---
History and Physical Date of Admission: 12/15/24 MR#: [id number] Acct: [id number] Name: RAHAT AMOS Jr. Rep #: [id number] : 1960 Provider: Dr. Inocente Sullivan MD Age/Sex: 64/M Location[place] [facility] [place] Status: Signed Intake Vital Signs 02/02/2415:15 Height 5 ft 9 in Intake Visit Reasons: lumbar spine Allergies codeine Adverse Reaction (Verified 12/10/24 15:07) Otherprocaine (From Novocain) Adverse Reaction (Verified 12/10/24 15:07) Other Medications ?Medication ?Instructions ?Recorded ?Confirmed ?Type albuterol sulfate 90 mcg/actuation 2 puff inhalation Q6H PRN 11/13/23 12/10/24 History aerosol inhaler shortness of breath or wheezing aspirin 81 mg tablet,delayed 81 mg PO DAILY 11/13/23 12/10/24 History release lisinopril 10 mg tablet 10 mg PO DAILY 11/13/23 12/10/24 History sildenafil 50 mg tablet 50 mg PO Q24H PRN sexual activity 11/13/23 12/10/24 History acetaminophen 500 mg capsule 500 mg PO Q6H PRN pain 11/29/24 12/10/24 History ibuprofen 600 mg tablet 600 mg PO Q6H PRN PRN pain 11/29/24 12/10/24 History PFSH Medical History Wears glasses Edentulous Alcohol use Arthritis History of hiatal hernia COPD (chronic obstructive pulmonary disease) Shortness of breath on exertion Chronic cough Smoker Leg cramps History of edema History of stress test Hypertension History of irregular heartbeat Surgical History Hx of surgical procedure History of umbilical hernia repair History of colonoscopy History of tooth extraction H/O knee surgery Family History Father Heart disease HypertensionMother Asthma Social History Smoking Status: Current every day smoker tobacco type: cigarettes alcohol intake: current alcohol intake frequency: holidays/special occasions only what type of physical activity do you participate in: walking HPI lumbar spine Details: This documentation accurately reflects the service provided and the decisions made by me, Dr. Inocente Sullivan MD 12/10/24 1500. Part of today?s visit was documented by Joyce DOZIER, acting as scribe. RAHAT AMOS is a 64 year old M here today for pre-op lumbar spine dos: 12/15/24. 09/17/24: RAHAT AMOS is a 63 year old M here today for lumbar spine pain and wants to discuss surgery. Patient states the last month his pain has been pretty bad. He states he has had more trouble with his back and his legs going numb more often. Patient states now it is hard to stand for very long, he is even more limited in the distance he is able to walk. He states since he is back to work now and it is harder to get his full hours in on a daily basis. Sitting improves his pain. He states the numbness in his leg stays around more often than it was. Patient states he has been taking Motrin for the pain as it has been helping him and giving him more relief than Aleve. 07/01/24: RAHAT AMOS is a 63 year old M here today for 6 month follow up cervical spine, dos 01/21/24. Patient states neck pain has been ok , some days his neck is a little bit sore and other days his neck is fine. Patient states he hasn't really had any problems. Patient is back to work. Patient has some questions his back has been bothering him. Patient states the 10 hours is beating him up pretty bad. Patient would like to see if you would write him a letter to work only 8 hours a day. At work he has to walk nonstop and has to go up and down steps. Patient was wondering if he is able to go up a ladder. Says that his balance has improved. Patient has questions about his prognosis in his back cause the chiropractor is making it seem like his back is worse then what he thought. Ortho Exam General General: Yes no acute distress Neurologic: Yes alert and Yes oriented x3 Spine SPINE TESTING CERVICAL THORACIC LUMBAR Musculoskeletal Strength 0=absent - 5=normal Details: Neurological exam of the lower extremities shows 5x5 power. Normal sensations across all dermatomes. No hyperreflexia. No midline or paraspinal tenderness. Coding Level of Care Code Off vis,est,level 4 Diagnoses Spinal stenosis of lumbar region with neurogenic claudication M48.062 S/P cervical disc replacement Z98.890 Time Spent (min) 35 Assessment and Plan Assessment and Plan (1) Spinal stenosis of lumbar region with neurogenic claudication: Status: Acute (2) S/P cervical disc replacement: Status: Acute Plan Again reviewed prior lumbar MRI which shows L2-5 disc degeneration disc height loss with severe central and foraminal stenosis along with congenital bony canal narrowing. He has said that his back pain has limited his walking to about 2 blocks before his lower extremities get weak and numb. Discussed options for his lumbar back which includes decompression alone versus decompression fusion. Discussed in detail L2-5 laminectomy. Discussed in detail benefits and risks of surgery. Discussed that the laminectomy surgery will not prevent progression of disc degeneration and axial low back pain but will hopefully improve his neurogenic claudication and functional mobility. All risk benefits and alternatives were discussed in detail. The risks include but are not limited to infection, bleeding, hematoma formation, need for further surgery, need for fusion in the future, persistent pain, persistent weakness and numbness, CSF leak, iatrogenic instability, need for further surgery, DVT, pulm embolism, pneumonia, atelectasis, cardiopulmonary event. Patient understands and agrees to proceed with surgery. Consent was signed.
[2024-12-15] MEDS: Cefazolin 2 GM in Syringe 10 ML IV ×2 (08:00→14:58)
[2024-12-15] MEDS: TRANEXAMIC ACID 1,000 MG in 0.9% Normal Saline (100mL Bag) 100 ML 440 MG IV ×2 (08:12→10:30)
[2024-12-15 08:24] LABS: Bedside Glucose 72 mg/dL (74-106)
[2024-12-15] MEDS: Ropivacaine 0.5% 30 ML Vial (10:12)
--- NOTE | 2024-12-15 10:40 | OP.PCM_ITS ---
Procedures Musculoskeletal 20xxx-29xxx: Other Procedure See Report Operative Report (Standard) Operative Information Date of Procedure: 12/15/24 Pre-Operative Diagnosis: L2-5 disc degeneration with stenosis with neurogenic claudication Post-Operative Diagnosis: Same Surgery/Procedure Performed: L2-5 laminectomy cardiac cath lab technologist: Yes Tooling Engineer: Brittanie Forde Tasks completed by household assistant: Closing, Removing tissue, Hemostasis: Electrocautery and Retracting Type of Anesthesia: General RN Documented Start/Stop Times: Operation Date: 12/15/24 08:00 Case Time Into Pre-Op 12/15/24 06:02 Out of Pre-Op 12/15/24 07:51 Anesthesia Start 12/15/24 07:58 Into Room 12/15/24 07:58 Procedure Start 12/15/24 08:24 Procedure End 12/15/24 10:36 Procedure Start Time: 08:24 Procedure Stop Time: 10:36 Select all DRAINS/GRAFTS/IMPLANTS that apply: None Estimated Blood Loss: 36 Specimen collected: No Description of surgery: Preoperative diagnosis: L2-5 central lateral recess stenosis bilateral, neurogenic claudication Postoperative diagnosis: Same Name of procedure: L2-5 open laminectomy L2-3 laminectomy CPT 55899 L3-4 laminectomy CPT 03407 L4-5 laminectomy CPT 16055 Attending Surgeon: Dr. Inocente Sullivan Estimated blood loss: 30 mL Anesthesia: General Indications: Patient is a 64-year-old gentleman who presented with low back pain and bilateral lower extremity radiation and numbness, with difficulty walking distances and neurogenic claudication. MRI revealed L2-5 disc degeneration with severe central and lateral recess and foraminal stenosis. All options of treatment were discussed which included continued nonoperative treatment measures like rest physical therapy, injections. After prolonged nonsurgical treatment, patient requested surgical intervention for laminectomy. All risks and benefits associated with the procedure were explained to the patient. The risks include but are not limited to infection, bleeding, injury to nerves and vessels, persistent paresthesia, incidental dural tear, recurrent disc herniation, spinal instability and need for fusion or other procedures in future, persistent pain, persistent weakness and numbness, etc. Procedure: The patient was identified in the preoperative holding suite using Unique patient identifiers. Skin was marked, consent was reviewed, and all questions were answered. The patient was then brought back to the operative room. A surgical timeout was performed to make sure correct procedure was being done on the correct patient and all operative room staff were on the same page. General endotracheal anesthesia was then given to the patient. The patient was then turned prone onto a Cheko table over a Vinayak frame. The back was prepped and draped in usual fashion. Preoperative antibiotic was given. A final timeout was then again done just before starting the procedure. An 18-gauge spinal needle was inserted and level was identified. An incision was then carried out in the midline. Bovie was utilized to dissect through the subcutaneous tissue up to the fascia. The fascia was bovied at the spinous process. Subperiosteal dissection was carried out along the both side of the spinous process and the lamina. This dissection was stopped at the level of the medial capsule of the facet joint. Lateral edge of the pars was also identified. A Larry was then placed under the inferior edge of the lamina and a C-arm lateral view was repeated. The level was confirmed to be the L3-4 interspace. Exposure of L2-3 and L4-5 were then performed. A Alcala retractor of appropriate depth was then placed to provide retraction throughout the remainder of the surgery. A bone cutter was used to remove the L3, L4 and inferior L2 spinous process. Response [employer] bone scalpel was then utilized to first create a score along the area of the laminectomy. Care was taken to preserve at least 1 cm of bone from the lateral border of the pars. The bone scalpel was then advanced to perform the cuts along this score. The lamina was then removed with the help of curettes and rongeurs. The flavum was utilized to protect the dura and superior articular process was carefully from the flavum. Partial medial facetectomy was performed to provide adequate lateral recess decompression. Superior portion of L5 lamina was also removed with help of Kerrisons. All of the flavum was eventually removed. Once decompression was adequately assessed with [place] in L2, L3, L4 and L5 foramina bilaterally, irrigation was done with normal saline. Irrisept was kept in the wound for 1 minute and then rinsed with saline. A piece of Gelfoam was then placed over the bony window. The Alcala retractor was then removed. And closure was done in layers, 0 Vicryl for the deep fascia, 2-0 Vicryl for subcutaneous tissue, and shiraz for the skin. The deep fascial layer was closed in a watertight fashion with interrupted 0 Vicryl augmented with #2 strata fix. 4 x 4 gauze was then placed over the wound covered with Tegaderm. The patient was then turned supine onto a hospital bed. The patient was extubated and taken to PACU in stable condition. The patient tolerated the procedure well and no complications occurred. Estimated blood loss for the entire surgery was 30 mL. No instrumentation was utilized in this case. No dural tear occurred in this case. I was present for the entirety of the case and performed the surgery myself. Surgical Findings: See operative note Complications Complications: No
--- NOTE | 2024-12-15 10:55 | PCM.POST.ANE ---
Anesthesia: Postop Eval I Current Vital Signs Temperature: 96.9 F Pulse Rate: 90 Blood Pressure: 130/77 Respiratory Rate: 20 Pulse Ox: 100 Assessment Airway patent: Yes Spontaneous unlabored respirations: Yes nausea: No Vomiting: No Anesthesia Complication: No Fluid Hydration Crystalloid volume administer (ml): 1,000 Total IV fluid infused: 1,000 Progress Note Anesthesia document: Postop Eval 1 completed: Yes
--- NOTE | 2024-12-15 11:16 | POSTOPAN2_ITS ---
Anesthesia Postop Eval I Sum Postop Eval Completion status Anesthesia document: Postop Eval 1 completed: Yes Anesthesia Postop Eval I Summary Anesthesia Postop Eval I Summary: Anesthesia Postop Eval I: Assessment Summary Airway patent Yes 12/15/24 11:15 PARTS DEPARTMENT SUPERVISOR.[email or web address] Spontaneous unlabored Yes 12/15/24 11:15 PARTS DEPARTMENT SUPERVISOR.CSIR respirations Mental status nausea No 12/15/24 11:15 PARTS DEPARTMENT SUPERVISOR.CSIR Vomiting No 12/15/24 11:15 PARTS DEPARTMENT SUPERVISOR.CSIR Anesthesia Postop Eval I: Fluid Summary Crystalloid volume administer 1,000 12/15/24 11:15 PARTS DEPARTMENT SUPERVISOR.CSIR (ml) Colloids volume administered ( ml) Blood Product volume administered (ml) Total IV fluid infused 1,000 12/15/24 11:15 PARTS DEPARTMENT SUPERVISOR.CSIR Anesthesia Postop Eval I: Summary Notes Anesthesia Complication No 12/15/24 11:15 PARTS DEPARTMENT SUPERVISOR.CSIR Anesthesia Complication Comment: Post-operative progress note Anesthesia: Postop Eval II Evaluation Mental status: Awake Pain Level: 4 nausea: No Vomiting: No
--- NOTE | 2024-12-15 11:16 | PCM.POSTANE2 ---
Anesthesia Postop Eval I Sum Postop Eval Completion status Anesthesia document: Postop Eval 1 completed: Yes Anesthesia Postop Eval I Summary Anesthesia Postop Eval I Summary: Anesthesia Postop Eval I: Assessment Summary Airway patent Yes 12/15/24 11:15 STEAM CRANE OPERATOR.CSIR Spontaneous unlabored Yes 12/15/24 11:15 STEAM CRANE OPERATOR.CSIR respirations Mental status nausea No 12/15/24 11:15 STEAM CRANE OPERATOR.CSIR Vomiting No 12/15/24 11:15 STEAM CRANE OPERATOR.CSIR Anesthesia Postop Eval I: Fluid Summary Crystalloid volume administer 1,000 12/15/24 11:15 STEAM CRANE OPERATOR.CSIR (ml) Colloids volume administered ( ml) Blood Product volume administered (ml) Total IV fluid infused 1,000 12/15/24 11:15 STEAM CRANE OPERATOR.CSIR Anesthesia Postop Eval I: Summary Notes Anesthesia Complication No 12/15/24 11:15 STEAM CRANE OPERATOR.CSIR Anesthesia Complication Comment: Post-operative progress note Anesthesia: Postop Eval II Evaluation Mental status: Awake Pain Level: 4 nausea: No Vomiting: No
[2024-12-15] MEDS: 0.9% Normal Saline (100mL Bag) 100 ML 15 ML IV (14:58)
[2024-12-15] MEDS: Methocarbamol 500 MG Tablet 1000 MG PO ×3 (14:58→21:24)
[2024-12-15] MEDS: 0.9% Saline Lock 10 ML Syringe IV (14:59)
--- NOTE | 2024-12-15 15:32 | PCM.PN.HOSP ---
Subjective Subjective 64-year-old male presents to the hospital for elective L2-5 laminectomy for disc degeneration and stenosis with neurogenic claudication. He still has some numbness in his right lower extremity but is no different than it was before surgery. Objective Data Objective Data Vital Signs: Vital Signs Temp Pulse Resp BP Pulse Ox O2 Del Method O2 Flow Rate 97 F L 68 16 103/75 100 Nasal Cannula 4 12/15/24 11:45 12/15/24 11:45 12/15/24 11:45 12/15/24 11:45 12/15/24 11:45 12/15/24 11:45 12/15/24 11:45 Oxygen Flow Rate (L/min) 4 Oxygen Delivery Method Nasal Cannula Weight: 165 lb 5.547 oz Body Mass Index (BMI) 24.4 Intake & Output: Intake and Output for Last 24 Hours 12/14/24 12/15/24 12/16/24 03:59 03:59 03:59 Intake Total 1362 / 1362 Balance 1362 / 1362 Lab / Micro Data 12/02/24 15:34 12/02/24 15:34 Labs: Laboratory Results - last 24 hr 12/15/24 06:31: POC Glucose 72 L Micro: Microbiology 12/02/24 15:34 Swab (Method) Nasal Screen MRSA/MSSA - Final Radiography Diagnostic Testing: Radiology Impression Spine X-Ray 12/15/24 07:00 IMPRESSION: Intraoperative findings as noted above. Reading Location: [place] [address] Physical Exam Narrative General: Alert, Oriented x3, Cooperative, No apparent distress HEENT: Atraumatic, PERRLA, EOMI, Normocephalic Oral: Moist Mucosa Neck: Supple, No JVD Lungs: Clear to auscultation, Normal air movement, No rhonchi, No wheeze, No rales Cardiovascular: Regular rate, Regular Rhythm, Normal S1, Normal S2, No murmurs Abdomen: Soft, Non Tender, Non-Distended, No Hepato-splenomegaly Extremities: No edema, Capillary Refill Less than 3 Seconds Skin: Dressing intact Musculoskeletal: No Tenderness to Palpation of Joints or Extremities Neurological: No focal neurological deficits, Motor Exam 5/5 strength throughout, Sensory exam intact to light touch and pain Psych/Mental Status: Normal Affect, Appropriate Assessment & Plan Assessment/Plan (1) Spinal stenosis of lumbar region with neurogenic claudication: PLAN: Plan 1. Spinal stenosis lumbar region with neurogenic claudication status post L2-5 laminectomy ? Pain management per primary ? PT/OT ? Discharge planning per primary 2. Essential HTN ? Blood pressures are stable, can resume his home lisinopril tomorrow after BMP ? Continue with aspirin on discharge DVT: Per primary primary Charges/Coding Visit Charges Office Visits / Consults: 96329 OV L3 New 30min
[2024-12-15] MEDS: Ensure Surgery 237 ML LIQUID PO (18:04)
[2024-12-15] MEDS: Senna/Docusate Sodium 1 Tablet 2 TABLET PO (21:24)
[2024-12-16 00:08] VITALS: BP 120/82; PULSE 103; RESP 16; TEMP 36.8; O2SAT 94
[2024-12-16] MEDS: Cefazolin 2 GM in Syringe 10 ML IV (00:10)
[2024-12-16] MEDS: 0.9% Saline Lock 10 ML Syringe IV (00:10)
[2024-12-16] MEDS: Albuterol 2.5 MG/3 ML VIAL.NEB. INHALATION (01:25)
[2024-12-16 01:26] VITALS: PULSE 93; RESP 18; O2SAT 93
[2024-12-16 04:08] VITALS: BP 131/75; PULSE 90; RESP 17; TEMP 36.7; O2SAT 93
[2024-12-16] MEDS: HYDROcodone Bitartrate/Apap 5/325 Tablet PO ×2 (04:15→10:12)
[2024-12-16 06:40] LABS: Hematocrit 41.7 % (40-54); Hemoglobin 14.4 g/dL (13.0-16.5); Mean Corp Hgb Conc 34.5 g/dL (32-36); Mean Corpuscular Hgb 31.7 pg (27.0-32.0); Mean Corpuscular Volume 91.9 fL (80-94); Mean Platelet Vol. 9.7 fl (6.2-12.0); Platelet Count 246 K/mm3 (150-450); RBC Distribution Width CV 13.2 % (11.6-14.6); RBC Distribution Width SD 44.9 fl (35.1-43.9); Red Blood Count 4.54 M/mm3 (4.6-6.2); White Blood Count 20.5 K/mm3 (4.4-11.0)
--- NOTE | 2024-12-16 06:57 | PN.HOSP_ITS ---
Reason for Visit Reason for Visit: Spinal stenosis, lumbar region with neurogenic claudication Subjective Subjective Patient states he has no back pain and is feeling well today. States plan was to go home as long as he is doing okay. Objective Data Objective Data Vital Signs: Vital Signs Temp Pulse Resp BP Pulse Ox O2 Del Method O2 Flow Rate 98.1 F 90 17 131/75 H 93 Room Air 2 12/16/24 04:08 12/16/24 04:08 12/16/24 04:08 12/16/24 04:08 12/16/24 04:08 12/16/24 04:08 12/15/24 12:44 Oxygen Flow Rate (L/min) 2 Oxygen Delivery Method Room Air Weight: 75 kg Body Mass Index (BMI) 24.4 Intake & Output: Intake and Output for Last 24 Hours 12/14/24 12/15/24 12/16/24 23:59 23:59 23:59 Intake Total 1850 / 1850 691.25 / 691.25 Output Total 860 / 860 Balance 990 / 990 691.25 / 691.25 Lab / Micro Data 12/16/24 05:46 12/16/24 05:46 Labs: Laboratory Results - last 24 hr 12/15/24 06:31: POC Glucose 72 L 12/16/24 05:46: WBC 20.5 H, RBC 4.54 L, Hgb 14.4, Hct 41.7, MCV 91.9, MCH 31.7, MCHC 34.5, RDW Std Deviation 44.9 H, RDW Coeff of Dread 13.2, Plt Count 246, MPV 9.7 Micro: Microbiology 12/02/24 15:34 Swab (Method) Nasal Screen MRSA/MSSA - Final Radiography Diagnostic Testing: Radiology Impression Spine X-Ray 12/15/24 07:00 IMPRESSION: Intraoperative findings as noted above. Reading Location: [place] [address] Physical Exam Const alert, oriented x3, no apparent distress, average body habitus, healthy appearing and well nourished Constitutional Narrative: Upper middle-aged, white male, sitting up in chair at bedside, at bedside, patient appears comfortable and nontoxic HEENT head/scalp atraumatic and moist oral mucous membranes Head and Scalp: normocephalic Resp normal respiratory effort, no retractions, no use of accessory muscles and clear to auscultation bilaterally Auscultation: Negative for rales, rhonchi or wheezes Cardio regular rate, regular rhythm, S1 normal heart sound, S2 normal heart sound, no murmurs, no rub, no gallops and no clicks GI normal to inspection, nondistended, normoactive bowel sounds, soft to palpation and non-tender Extremity no clubbing, cyanosis or edema Extremity Narrative: Pedal and radial pulses are 2+ Neuro oriented x3, moves all extremities and no focal motor deficits Speech: speech normal Psych affect normal Psych Narrative: Very pleasant Assessment & Plan Assessment/Plan (1) Spinal stenosis of lumbar region with neurogenic claudication: (2) Status post laminectomy: PLAN: Plan Lumbar spinal stenosis -Postop day 1 -Management per primary service -Postop area appears to be clean dry and intact without any drainage on the bandage -PT/OT per primary service -Highly recommend tobacco cessation for wound healing postoperatively and overall as this will improve overall prognosis Essential hypertension -Continue home lisinopril COPD -Patient takes as needed albuterol home -Will continue Tobacco abuse -Recommend cessation ED -Restart tadalafil at discharge History of hiatal hernia -Patient is asymptomatic at this time and takes no chronic medications DVT prophylaxis -Per primary service Disposition: -Labs reviewed, vitals reviewed -Patient doing well and stable for discharge. Discussed with Dr. Sullivan Charges/Coding Visit Charges Inpatient E&M: 84221 Subs Hosp L2
[2024-12-16 07:04] LABS: Anion Gap 11 (5-15); BUN 12 mg/dL (4-19); BUN/Creat Ratio 14.6 RATIO (10-20); Calcium,Total 9.5 mg/dL (7.6-11.0); Carbon Dioxide 24.5 mmol/L (21.0-32.0); Chloride 103 mmol/L (98-108); Creatinine, Serum 0.81 mg/dL (0.70-1.20); EST Glomerular Filtration Rate 99 (>60); Estimated Creatinine Clearance 93.35 ml/min (50-250); Glucose 127 mg/dL (70-99); Potassium 4.1 mmol/L (3.3-5.1); Sodium Level 139 mmol/L (133-145)
[2024-12-16 07:31] VITALS: O2SAT 97
[2024-12-16 08:08] VITALS: BP 138/87; PULSE 115; RESP 16; TEMP 36.9; O2SAT 94
[2024-12-16] MEDS: Ensure Surgery 237 ML LIQUID PO (08:39)
[2024-12-16] MEDS: Meloxicam 15 MG Tablet PO (10:12)
[2024-12-16] MEDS: Senna/Docusate Sodium 1 Tablet 2 TABLET PO (10:12)
[2024-12-16] MEDS: Lisinopril 10 MG Tablet PO (10:12)
[2024-12-16] MEDS: Methocarbamol 500 MG Tablet 1000 MG PO ×2 (10:13→13:46)
--- NOTE | 2024-12-16 11:05 | CASEMGMT ---
JESSICA HARDING Assessment Face to Face with patient for initial transition planning/care coordination assessment. JESSICA HARDING introduced self and role at [facility], pt voices understanding. Pt is A&Ox4 and is resting comfortably in the chair and is calm. Pt at bedside. Care providers, pharmacy, and demographics verified. Admitting dx: Lumbar Laminectomy LACE Strata: 1 PCP: Lane Morin Specialists: Nate (Ortho) Preferred Pharmacy: [facility] Insurance: DRISS, [place] Prescription Benefit: Yes. Pt states that she would like to know the Rx costs @ the time of DC. MS3 JESSICA HARDING notified. LNOK: Teresa Hernandezdows (W) Living Arrangements: Pt lives with his SO in a single story home with 2 steps to enter ADLs/IADLs: Independent Transportation: Self, . Denies concerns DME: Inhaler. Licensed Direct Entry Midwife. Pt has a hx of COPD but does not have any home oxygen equipment. A verbal list of local in-network DME companies were provided to the pt at this time. Pt prefers [facility] if he were to qualify. See JESSICA Hendricks CM note about the FWW. ? HHC/SNF: Denies hx or needs. Pt?s goal: Home Plan: Home with pt SO, FWW, and f/u with [facility] and start OP PT subsequently as warranted. Pt states that he feels safe with this plan and denies further questions or concerns at this time. Report given to MS3 JESSICA HARDING. Gabby Mtz RN, CM
--- NOTE | 2024-12-16 11:19 | CASEMGMT ---
Addendum entered by Eladio Aguilera 12/16/24 13:36: Discharge order is in. Call placed to [facility] retail pharmacy for asencio check on dc meds. Total cost is $2.67. JESSICA HARDING to room. Pt and made aware of cost. They would like meds delivered to pt's room, call placed to pharmacy and they were notified. FWW has been delivered to pt's room. Pt and aware to schedule f/u appt w/Dr Sullivan in 2 wks. Pt thinks he has already scheduled this but they will call and make sure and schedule one if not. Pt and deny having any further dc planning needs or concerns. Apolinar WATSON RN, CM Original Note: JESSICA HARDING NOTE: JESSICA HARDING informed that pt would like a FWW. RN CM to room. Pt sitting up in chair, @ bedside. Pt confirms he wants a FWW and chooses [facility] as 1st DME co preference. Script for FWW obtained from Dr Gordon and sent to [facility] via [employer]. Per Tom @ [facility], script has been received and he will deliver FWW to pt's room shortly. Pt states he has worked w/both PT and OT this morning and feels safe to dc home today. He plans to f/u with Dr Sullivan in 2 weeks and will discuss if any therapy is needed after that. Apolinar WATSON RN, CM
--- NOTE | 2024-12-16 14:31 | PCM.PN.ORT ---
Subjective Subjective Patient is POD 1 L2-5 laminectomy. Patient is doing well postoperatively with his pain well-managed. Patient says he has been up with physical therapy who is cleared him for home discharge. Patient says that his numbness that he was having in his feet prior to the surgery has slightly improved. Seen with Dr. Sullivan. Objective Data Objective Data Vital Signs: Vital Signs Temp Pulse Resp BP Pulse Ox O2 Del Method O2 Flow Rate 98.4 F 115 H 16 138/87 H 94 Room Air 2 12/16/24 08:08 12/16/24 08:08 12/16/24 08:08 12/16/24 08:08 12/16/24 08:08 12/16/24 08:08 12/15/24 12:44 Oxygen Flow Rate (L/min) 2 Oxygen Delivery Method Room Air Weight: 165 lb 5.547 oz Body Mass Index (BMI) 24.4 Intake & Output: Intake and Output for Last 24 Hours 12/14/24 12/15/24 12/16/24 23:59 23:59 23:59 Intake Total 1850 / 1850 691.25 / 691.25 Output Total 860 / 860 Balance 990 / 990 691.25 / 691.25 Lab / Micro Data 12/16/24 05:46 12/16/24 05:46 Labs: Laboratory Results - last 24 hr 12/16/24 05:46: WBC 20.5 H, RBC 4.54 L, Hgb 14.4, Hct 41.7, MCV 91.9, MCH 31.7, MCHC 34.5, RDW Std Deviation 44.9 H, RDW Coeff of Dread 13.2, Plt Count 246, MPV 9.7, Sodium 139, Potassium 4.1, Chloride 103, Carbon Dioxide 24.5, Anion Gap 11, BUN 12, Creatinine 0.81, Estim Creat Clear Calc 93.35, Est GFR (MDRD) Non-Af 99, BUN/Creatinine Ratio 14.6, Glucose 127 H, Calcium 9.5 Micro: Microbiology 12/02/24 15:34 Swab (Method) Nasal Screen MRSA/MSSA - Final Physical Exam Narrative Neurological exam of the lower extremities shows 5x5 power. Normal sensations across all dermatomes. Physical examination of the back shows surgical dressing CDI. Const alert, oriented x3 and no apparent distress Assessment & Plan Assessment/Plan (1) Status post laminectomy: PLAN: Plan Postop day 1 L2-5 laminectomy. Patient has walked with the physical therapy and is cleared for home discharge. Reviewed restrictions of no bending, lifting, twisting until 3 months postop. Reviewed proper use of the incentive spirometer. He will follow-up in the clinic in 2 weeks. Patient is in agreement.
== END 2024-12-16 15:09 | disposition home or self-care (01) ==
LOC: SDC 12:21 → MS3 12:21
PROVIDERS: Anesthesiology; Student in an Organized Health Care Education/Training Program; Admitting Provider Orthopaedic Surgery Orthopaedic Surgery of the Spine; PCP Internal Medicine; Referring Provider Orthopaedic Surgery Orthopaedic Surgery of the Spine; Visit Provider Orthopaedic Surgery Orthopaedic Surgery of the Spine
PROC: (CPT 63030; principal; 2024-12-15 07:30)
DX: M48.062 Spinal stenosis, lumbar region with neurogenic claudication (principal); J44.9 Chronic obstructive pulmonary disease, unspecified; M51.360 Other intervertebral disc degeneration, lumbar region with discogenic back pain only; R26.2 Difficulty in walking, not elsewhere classified; M54.2 Cervicalgia; I10 Essential (primary) hypertension; F17.210 Nicotine dependence, cigarettes, uncomplicated; Z79.82 Long term (current) use of aspirin; Z79.899 Other long term (current) drug therapy; N52.9 Male erectile dysfunction, unspecified
CPT/HCPCS: 63047; 63048 ×2; 00630; 36415; 72020; 76000; 80048; 82962; 83735; 85025; 85027; 86703; 86706; 86708; 86803; 86850; 86900; 86901; 87081; 94640; 94668; 96374; 96376; 97116; 97162; 97166; 97530; 99221; 99406; A4216; G0378; J2405; J3475

== ENCOUNTER 2025-04-06 11:00 | Outpatient (RCR) | payer BC, OTHER, SELFPAY ==
--- NOTE | 2025-03-02 15:33 | HP.PTEVAL ---
Patient's Visit Information Visit Information Visit Information: RAHAT AMOS Jr. is a 64 year old M referred to Physical Therapy by Dr. Inocente Sullivan MD with a diagnosis of S/P laminectomy DOS: 12/15/24. Date of Evaluation: 03/02/25 Physical Therapist: Fuad Huitron DPT Visit Plan Frequency: 2x /Week Duration: 6 Weeks Plan: 1) Neutral spine core strengthening 2) BLE quad and glute strengthening 3) lifting mechanics 4) manual/STM to B erector spinae and multifidus to reduce symptoms. as needed Pt. is on a 15-18# lifting restriction. Subjective Subjective: Pt. is here today for his initial evaluation with diagnosis of laminectomy DOS: 12/15/24. Pt. has been off work since. Pt. prior to surgery he was having NT in both LEs. Marked weakness noted as well. He is not having some intermittent numbness in his R foot on his great toe and inside of foot. Pt. reports greatest with sitting, not as much with standing. He reports this symptoms is improving. Pt. is on a 15-18# lifting restriction. Pt. still does have some soreness with prolonged supine lying. Pt. is hopeful to get back to all recreational and work activities without limitations. 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 Pain Lumbar spine: Pain Intensity (Out of 10): 0 Pain Intensity Range: 0 and 2 R LE: Pain Intensity (Out of 10): 0 Comment: just some numbness in his great toe. Objective Objective: POSTURE: Pt. has good posture in stance. PALPATION: No signs of infection. Tender to touch around incision. No heat noted. NEURO: normal throughout. ROM: Lumbar spine: flexion min loss, ext min loss, SB min loss bilat, rotation min loss bilat. Pt. has tightness in B HS noted. MMT: RLE: Knee: ext 30.5#, flex 24.3#; hip: flex 26.2# mild increase in LBP, abd 44.6#, ext 23.8# LLE: knee: ext 29.5#, flex23.5#; hip: flex 28.5#; abd 40.9#, ext 18.9# Core strength poor+. GAIT: pt. ambulates with rigid pattern. Pt. reports no increase in pain. Minimal trunk or arm swing. STAIRS: normal with 1 HR without issues. Balance/Special Test Scores Oswestry Low Back Score: 25 Goals Goal 1:: LTG: Pt. to be I with HEP. Goal Time Frame: 4-6 Weeks Goal 2:: STG: Pt. to have increased HS length to 80deg bilaterally. Goal Time Frame: 2-4 Weeks Goal 3:: LTG: Pt to have increased BLE and core strength by 10# throughout. Goal Time Frame: 4-6 Weeks Goal 4:: LTG: Pt. lift 18# from the floor to table without increase in LBP. Goal Time Frame: 4-6 Weeks Goal 5:: LTG: Pt. to have no radicular symptoms in RLE. Goal Time Frame: 4-6 Weeks Rehabilitation Potential Physical Therapy Diagnosis: Pt. has signs and symptoms consistent with S/P laminectomy. Pt. has some lumbar hypomobility, and core weakness. Pt. would benefit from PT to address the above limitations progressing back to all work and recreational activities. Rehabilitation Potential: Excellent Anticipated Interventions Patient/Client Instruction: Educate patient on: Condition, Plan of Care, Risk Factors and Benefits of Fitness Program For the Purpose of:: To facilitate caregiver knowledge, To improve self management, To prevent re-injury, To improve ability to perform tasks related to life management and To improve tolerance to ADL's Therapeutic Exercise to Include: Strength training, Power training, Endurance training, Balance training, Body mechanics, Postural training, Flexibilty training and Dynamic Lumbar Stabilization For the Purpose of:: To decrease pain, To decrease swelling/inflammation, To increase ROM, To improve nutrient delivery to tissue, To increase oxygenation perfusion, To improve muscle performance and motor function, To improve ability to perform ADL's, To increase tolerance to activity/condition/position, To decrease soft tissue restriction and To increase flexibility/ROM Text: Thank you for the opportunity to evaluate your patient. For Medicare and Medicare HMO plans, please review the plan of care and approve it. It will need to be FAXED BACK to us at [phone] for Medicare purposes. For Medicare only, by signing this I certify the plan of care. Please let me know if there are questions or concerns regarding this plan of care. Physician Signature: Date:
--- NOTE | 2025-04-06 13:30 | HP.PTDCSUM_ITS ---
Discharge Summary D/C summary: It has been my pleasure to treat RAHAT AMOS Jr. referred by Dr. Inocente Sullivan MD, with the diagnosis of S/P laminectomy DOS: 12/15/24 for a total of 9 visit(s). Discharge Date: 04/06/25 Please see the following information for a summary of their discharge status. Subjective Subjective: Pt. reports overall doing better. Pt. was working in [employer]. Pt. recently retired. Pt. reports being 75% better overall. He is doing all basic activities, but heavier activities he is having issues. Pt. reports having soreness in his back, I know its there. 3/10 pain currently. Pain Lumbar spine: Pain Intensity (Out of 10): 3 R LE: Pain Intensity (Out of 10): 0 Overall Improvement % Improvement: 75 Objective Objective/Function: Pt. reports no radicular symptoms in his R leg. MMT: RLE: Knee: ext 30.5#, flex 24.3#; hip: flex 26.2# mild increase in LBP, abd 44.6#, ext 23.8# LLE: knee: ext 29.5#, flex23.5#; hip: flex 28.5#; abd 40.9#, ext 18.9# CURRENT: RLE: knee: ext 44.6#, flex 28.6# LLE: knee: ext 42.1#, flex: 29.1# Pt. is able to lifting 20# KB from floor to table without increase in symptoms. Pt. pleased. Pt. plans on joining local gym to continue to work on strengthening. Pt pleased. Pt. will be DC from Pt has met all goals at this point in time. Goals Goal 1:: LTG: Pt. to be I with HEP. Goal Progress: Goal Met Goal 2:: STG: Pt. to have increased HS length to 80deg bilaterally. Goal Progress: Goal Met Goal 3:: LTG: Pt to have increased BLE and core strength by 10# throughout. Goal Progress: Goal Met Goal 4:: LTG: Pt. lift 18# from the floor to table without increase in LBP. Goal Progress: Goal Met Goal 5:: LTG: Pt. to have no radicular symptoms in RLE. Goal Progress: Goal Met Plan Plan: Pt. to be DC from PT at this point in time. D/C Information d/c sentence: If there are questions or concerns regarding this patient's physical therapy, please feel free to call me at [phone]. Thank you for the referral of this patient. Sincerely, Fuad Hoytos, DPT Balance/Gait/Functional tests Balance/Special Test Scores Oswestry Low Back Score: 14 Improvement % Improvement: 75
== END 2025-04-06 19:00 | disposition home or self-care (01) ==
LOC: PT 11:00
PROVIDERS: PCP Internal Medicine; Referring Provider Orthopaedic Surgery Orthopaedic Surgery of the Spine; Visit Provider Orthopaedic Surgery Orthopaedic Surgery of the Spine
DX: Z98.890 Other specified postprocedural states (principal)
CPT/HCPCS: 97110; 97161; 97530